=== PATIENT | female | born 1960 | race African-American/Black ===

== ENCOUNTER 2022-11-19 18:29 | Emergency (ER) | payer BC, OTHER ==
[2022-11-19 18:51] VITALS: BMI 18.9
[2022-11-19] MEDS ORDERED: SODIUM CHLORIDE 0.9% 500 ML INFUS.BAG IV ONE (19:29)
[2022-11-19] MEDS ORDERED: HYDROmorphone HCl 2 MG/ML VIAL IVPB ONE (19:29)
[2022-11-19 19:30] LABS: HEMATOCRIT 35.5 % (32.4-45.2); HEMOGLOBIN 11.8 G/dL (10.7-15.3); MCH 28.7 pg (25.7-33.7); MCHC 33.2 g/dl (32.0-36.0); MEAN CELL VOLUME 86.6 fl (80-96); PLATELET COUNT 428.9 10^3/uL (134-434); RDW 17.9 % (11.6-15.6)
[2022-11-19 19:47] LABS: ALBUMIN 3.4 g/dl (3.4-5.0); BILIRUBIN,TOTAL 0.4 mg/dl (0.2-1); BLOOD UREA NITROGEN 4.5 mg/dl (7-18); CALCIUM 9.9 mg/dl (8.5-10.1); CREATININE 0.7 mg/dl (0.6-1.3); MAGNESIUM 1.5 mg/dL (1.8-2.4); POTASSIUM 3.1 mmol/L (3.5-5.1); SGOT/AST 18.8 U/L (15-37); SGPT/ALT 16.1 U/L (7-52); TOT PROT 6.2 g/dl (6.4-8.2)
[2022-11-19 19:59] LABS: PLATELET ESTIMATE ADEQUATE
[2022-11-19] MEDS ORDERED: HYDROmorphone HCL/PF 1 MG/ML VIAL ONE (19:59)
[2022-11-19] MEDS ORDERED: POTASSIUM CHLORIDE ORAL LIQUID 20 MEQ/15 ML PO ONE (20:10)
[2022-11-19] MEDS ORDERED: MAGNESIUM 1GM/D5W - 1 GM/100 ML IVPB IVPB ONE ×2 (20:12→20:18)
[2022-11-19] MEDS ORDERED: POTASSIUM CHLORIDE ORAL LIQUID 20 MEQ/15 ML ONE (20:14)
[2022-11-19 21:25] VITALS: BP 138/87; PULSE 75; RESP 17; TEMP 98
== END 2022-11-19 22:04 | disposition home or self-care (01) ==
LOC: FER 18:29
PROC: 3E033GC Introduction of Other Therapeutic Substance into Peripheral Vein, Percutaneous Approach (ICD-10-PCS; principal; 2022-11-19)
PROC: 3E033GC Introduction of Other Therapeutic Substance into Peripheral Vein, Percutaneous Approach (ICD-10-PCS; 2022-11-19)
DX: E87.6 Hypokalemia (principal); R53.1 Weakness; R45.1 Restlessness and agitation
CPT/HCPCS: 36415; 80053; 81003; 81015; 83735; 85027; 87086; 99284-25